=== PATIENT | male | born 1985 | race Two or more races ===

== ENCOUNTER → 2024-01-26 | Outpatient (CLI) | payer OTHER | LOC: M PLAIMG 13:14 | PROVIDERS: ATTEND Orthopaedic Surgery | DX: S92.352A Displaced fracture of fifth metatarsal bone, left foot, initial encounter for closed fracture (principal); W18.30XA Fall on same level, unspecified, initial encounter; Y92.009 Unspecified place in unspecified non-institutional (private) residence as the place of occurrence of the external cause ==